=== PATIENT | female | born 1960 | race Caucasian/White ===

== ENCOUNTER 2018-04-18 09:04 | Day surgery (SDC) | payer MEDICAID ==
[~2018-04-18] VITALS: Ht 158.8 cm; Wt 83.5 kg
[~2018-04-18 09:04] MED LIST: LACTATED RINGERS 1,000 ML IV SCH
[2018-04-18] MEDS ORDERED: AMOX500T2 PO (10:30)
[2018-04-18] MEDS ORDERED: ACET-2178 PO (10:30)
[2018-04-18] MEDS ORDERED: HEPARIN 100 UNITS/1 ML VIAL ONE (10:59)
[2018-04-18] MEDS ORDERED: TRIAMCINOLONE ACETONIDE 40MG/ML 1ML VIAL ONE (11:00)
[2018-04-18] MEDS ORDERED: PROPOFOL 200MG/20ML VIAL IV ONE (11:22)
[2018-04-18] MEDS ORDERED: MIDAZOLAM HCL 2 MG/2 ML VIAL ONE (11:22)
[2018-04-18] MEDS ORDERED: LIDOCAINE HCL/PF 1% 10 MG/ML 5ML VIAL ONE (11:39)
[2018-04-18] MEDS ORDERED: TETRACAINE 0.5% OPHTH DROPS 4ML ONE (11:42)
[2018-04-18] MEDS ORDERED: SODIUM CHLORIDE 0.9% 1,000 ML IV ONE (13:03)
[2018-04-18] MEDS ORDERED: ACETAMINOPHEN 650MG/20.3ML UDC PO ONE (13:15)
[2018-04-18] MEDS ORDERED: HYDROMORPHONE HCL/PF 2MG/ML CPJ IV PRN (13:15)
[2018-04-18] MEDS ORDERED: ONDANSETRON HCL 4MG/2ML VIAL IV PRN (13:15)
[2018-04-18] MEDS ORDERED: ACETAMINOPHEN 325MG TABLET PO NR (13:15)
[2018-04-18] MEDS ORDERED: BUPIVACAINE HCL/PF 0.75% (7.5MG/ML) 10ML ONE (14:47)
[2018-04-18] MEDS ORDERED: LIDOCAINE HCL 2%/EPINEPHRINE 1:100,000 20 ML VIAL INFIL ONE (14:47)
[2018-04-18] MEDS ORDERED: PREDNISOLONE ACETATE 1% OPHTH DROPS 1ML ONE (14:47)
[2018-04-18] MEDS ORDERED: BALANCED SALT IRRIG SOLN 15ML ONE (14:47)
[2018-04-18] MEDS ORDERED: CIPROFLOXACIN 0.3% OPHTH SOLN 2.5ML ONE (14:47)
[2018-04-18] MEDS ORDERED: NEO/POLYMYX B SULF/DEXAMETH OPHTH OINT 3.5GM ONE (14:47)
== END 2018-04-18 13:50 | disposition home or self-care (01) ==
LOC: OR 09:04
PROVIDERS: ATTEND Ophthalmology
DX: H11.002 Unspecified pterygium of left eye (principal); Z79.2 Long term (current) use of antibiotics; Z98.890 Other specified postprocedural states
CPT/HCPCS: 65426; J2250; J3490; J7120; J1642; J2704; J3301